=== PATIENT | female | born 1985 | race Caucasian/White ===

== ENCOUNTER 2019-02-18 09:56 | Observation (INO) | payer OTHER ==
--- NOTE | 2019-02-18 10:35 | ERPHSYRPT ---
- History of Present Illness Time Seen by Provider: 02/18/19 10:21 Historian: patient Exam Limitations: no limitations Patient Subjective Stated Complaint: pt reports she was seen last week at the [facility] for congestion of chest and head, report she was given a zpak and a steroid injection. states her s/s have increased and she now feels like she has heartburn, denies pain but states she has chest discomfort. pt reports she has also been sweating profusely and is tired with minimal exertion. pt also reports productive cough. Triage Nursing Assessment: pt is aox3, pupils perrl, afebrile, pt is extremely diaphoretic, pt skin appears flushed but clammy to touch, resps easy and non labored, lung sounds are diminished, radial pulses strong and equal, heart sounds strong and regular, cap refill < 3 seconds, no edema appreciated. pain localized to the epigastric region. Physician History: 33-year-old morbidly obese white female who states that she was seen last week secondary to chest congestion head congestion she was given a Z-Simba and steroids. She states that for the past 2 days she has been experiencing substernal pain described as a heartburn she states she's been having some shortness of breath some nausea, she states she vomited yesterday she has had a cough Past medical history patient states she had a patent ductus arteriosus repaired as an . Past surgical history cholecystectomy, , patent ductus arteriosus. Social history positive tobacco denies alcohol or illicit drug use Timing/Duration: day(s) (2 days) Activities at Onset: none Quality: burning Location: substernal Chest Pain Radiation: no radiation Severity of Pain-Max: moderate Severity of Pain-Current: mild Modifying Factors: Improves With: coughing. Worsens With: antacids, breathing, defecating, eating, exertion, lying down, morphine, movement, nitroglycerin, oxygen, palpation, aspirin, sitting up, change in position Associated Symptoms: nausea, vomiting (vomiting yesterday), heartburn, shortness of breath, cough, diaphoresis, chills, No palpitations, No abdominal pain, No hurts to breathe, No fever, No fatigue, No weakness, No swelling/lump in chest, No syncope, No rash, No headache, No dizziness, No edema, No back pain Prior Chest Pain/Cardiac Workup: no prior chest pain Aspirin Treatment Today: 81 mg x 4, provided by ED Allergies/Adverse Reactions: No Known Drug Allergies Allergy (Verified 02/18/19 10:19) Home Medications: Albuterol 8 gm Mdi Hfa [Ventolin Hfa MDI] 2 puff IH BID 02/18/19 [History] Hx Tetanus, Diphtheria Vaccination/Date Given: No Hx Influenza Vaccination/Date Given: No Hx Pneumococcal Vaccination/Date Given: No Immunizations Up to Date: Yes - Review of Systems Constitutional: No Fever, No Chills Eyes: No Symptoms Ears, Nose, & Throat: Nose Congestion, No Ear Pain, No Ear Discharge, No Hearing Changes, No Tinnitus, No Nose Pain, No Nose Discharge, No Sinus Drainage , No Epistaxis, No Mouth Pain, No Mouth Swelling, No Loose Teeth, No Throat Pain , No Throat Swelling, No Hoarse, No Painful Swallowing, No Snoring Respiratory: Cough, Dyspnea Cardiac: Chest Pain (pain like heartburn substernal) Abdominal/Gastrointestinal: Nausea, Vomiting, No Abdominal Pain, No Diarrhea, No Constipation, No Hematemesis, No Hematochezia, No Melena, No Dysphagia, No Appetite Changes Genitourinary Symptoms: No Dysuria Musculoskeletal: No Back Pain, No Neck Pain Skin: No Rash Neurological: No Dizziness, No Focal Weakness, No Sensory Changes Psychological: No Symptoms Endocrine: No Symptoms All Other Systems: Reviewed and Negative - Past Medical History Pertinent Past Medical History: No - Past Surgical History Past Surgical History: Yes Gastrointestinal: Cholecystectomy Female Surgical History: Section - Social History Smoking Status: Current every day smoker Exposure to second hand smoke: No Drug Use: none Patient Lives Alone: No - Female History Hx Last Menstrual Period: 01/19/19 Hx Now: No - Nursing Vital Signs Nursing Vital Signs: Initial Vital Signs Temperature 98.6 F 02/18/19 10:05 Pulse Rate 98 H 02/18/19 10:05 Respiratory Rate 20 02/18/19 10:05 Blood Pressure 130/78 02/18/19 10:05 O2 Sat by Pulse Oximetry 97 02/18/19 10:05 Pain Scale Pain Intensity 2 - Physical Exam General Appearance: mild distress, alert, obese, other (diaphoretic) Eye Exam: PERRL/EOMI, eyes nml inspection, other (fundi unremarkable) Ears, Nose, Throat Exam: normal ENT inspection, moist mucous membranes Neck Exam: normal inspection, non-tender, supple, full range of motion Respiratory Exam: normal breath sounds, lungs clear, No respiratory distress Cardiovascular Exam: regular rate/rhythm, normal heart sounds, capillary refill <2 sec Gastrointestinal/Abdomen Exam: soft, No tenderness, No mass Back Exam: normal inspection, No CVA tenderness, No vertebral tenderness Extremity Exam: normal inspection, normal range of motion Neurologic Exam: alert, oriented x 3, radio/tv technician II-XII nml as tested, sensation nml, No motor deficits, No sensory deficit Skin Exam: normal color, diaphoresis SpO2 Interpretation: normal (97%) SpO2: 97 - Course Nursing assessment & vital signs reviewed: Yes EKG Interpreted by Me: RATE (100 bpm), Sinus Rhythm, NORMAL AXIS, Other (EKG: Sinus rhythm, 100 beats per minute, normal axis, no acute ST or T wave changes, normal EKG) - Radiology Exams Chest X-ray Interpretation: Discussed w/ radiologist (chest x-ray:normal heart and lungs. Bony thorax intact with left rib fractures) - CT Exams Chest CT Interpretation: Discussed w/radiologist (CT chest: Impression 1. Troponin embolism evaluation limited due to suboptimal contrast opacification. No central pulmonary embolism. 2. Scattered fibrosis/scarring. No acute cardiopulmonary abnormalities. 3. Nonspecific small subcarinal and distal paraesophageal lymph nodes.) Abdomen CT Interpretation: Discussed w/radiologist (CT abdomen with contrast: Impression 1. Nonspecific small . Aortic and mesenteric lymph nodes larger 1.6x2.9 cm lymph node interposed bbetween the liver and the right hemidiaphragm 2. Fatty liver and splenomegaly 3. Remaining CT of the abdomen with contrast is negative, ) Ordered Tests: Active Orders 24 hr Category Date Time Status Bedrest with BRP/BSC ROUTINE Activity 02/18/19 14:55 Active Call Admit Doctor for Orders ON ADMISSION Care 02/18/19 14:55 Active Code Status Order ROUTINE Care 02/18/19 14:55 Active EKG-ER Only STAT Care 02/18/19 10:29 Completed IV Care Q6H Care 02/18/19 14:55 Active IV Insertion STAT Care 02/18/19 10:[address] in Observation ROUTINE Care 02/18/19 14:55 Active Telemetry q4h Care 02/18/19 14:55 Completed Telemetry q6h Care 02/18/19 14:55 Active Weight,Daily 0600 Care 02/18/19 14:55 Active Clear Liquid Diet 02/18/19 Dinner Active ABDOMEN WITH CONTRAST [CT] Stat Exams 02/18/19 11:24 Completed CHEST 1 VIEW (PORTABLE) Stat Exams 02/18/19 10:26 Completed CHEST WITH CONTRAST [CT] Stat Exams 02/18/19 11:18 Completed AMYLASE Stat Lab 02/18/19 10:00 Completed BLOOD CULTURE Stat Lab 02/18/19 10:48 Received CBC W DIFF AM.LAB Lab 02/19/19 04:00 Ordered CBC W DIFF Stat Lab 02/18/19 10:00 Completed CMP AM.LAB Lab 02/19/19 04:00 Ordered CMP Stat Lab 02/18/19 10:00 Completed CULTURE,URINE Stat Lab 02/18/19 11:00 Received D-DIMER QUANTITATION Stat Lab 02/18/19 10:00 Completed HCG QUALITATIVE,SERUM Stat Lab 02/18/19 10:30 Completed LIPASE Stat Lab 02/18/19 10:00 Completed Lactic Acid Stat Lab 02/18/19 11:05 Completed Lactic Acid Stat Lab 02/18/19 13:30 Completed Manual Differential NC Stat Lab 02/18/19 10:00 Completed NT PRO BNP Stat Lab 02/18/19 10:00 Completed TROPONIN Q3H Lab 02/18/19 10:30 Completed TROPONIN Q3H Lab 02/18/19 13:26 Completed UA W/RFX UR CULTURE Stat Lab 02/18/19 11:00 Completed Pulse Oximetry CONTINUOUS RT 02/18/19 14:55 Active Transfer Order Routine Transfer 02/18/19 Completed Medication Summary Generic Name Dose Route Start Last Admin Trade Name Freq PRN Reason Stop Dose Admin Ceftriaxone Sodium/Dextrose 1 g in 50 mls @ 100 mls/hr 02/19/19 10:00 Rocephin 1 Gm-D5w 50 Ml Bag IV 03/21/19 09:59 Q24H10 VAMSHI Sodium Chloride 1,000 mls @ 100 mls/hr 02/18/19 14:55 02/18/19 15:48 Sodium Chloride 0.9% 1000 Ml IV 03/20/19 14:54 100 mls/hr .Q10H VAMSHI Administration Discontinued Medications Generic Name Dose Route Start Last Admin Trade Name Freq PRN Reason Stop Dose Admin Aspirin 324 mg 02/18/19 11:18 02/18/19 11:26 Baby Aspirin 81 Mg Chew PO 02/18/19 11:19 324 mg STAT ONE Administration Aspirin Confirm 02/18/19 11:22 Baby Aspirin 81 Mg Chew Administered 02/18/19 11:23 Dose 81 mg .ROUTE .STK-MED ONE Sodium Chloride 1,000 mls @ 999 mls/hr 02/18/19 11:15 02/18/19 12:41 Sodium Chloride 0.9% 1000 Ml IV 02/18/19 12:15 Infused .Q1H1M STA Infusion Sodium Chloride 1,000 mls @ 999 mls/hr 02/18/19 11:15 02/18/19 14:07 Sodium Chloride 0.9% 1000 Ml IV 02/18/19 12:15 Infused .Q1H1M STA Infusion Ceftriaxone Sodium/Dextrose 1 g in 50 mls @ 100 mls/hr 02/18/19 11:19 12:40 Rocephin 1 Gm-D5w 50 Ml Bag IV 02/18/19 11:48 Infused STAT STA Infusion Sodium Chloride Confirm 02/18/19 11:22 Sodium Chloride 0.9% 1000 Ml Administered 02/18/19 11:23 Dose 1,000 mls @ ud .ROUTE .STK-MED ONE Sodium Chloride 1,000 mls @ 999 mls/hr 02/18/19 11:25 02/18/19 14:07 Sodium Chloride 0.9% 1000 Ml IV 02/18/19 12:25 999 mls/hr .Q1H1M STA Administration Ceftriaxone Sodium/Dextrose Confirm 02/18/19 11:33 Rocephin 1 Gm-D5w 50 Ml Bag Administered 02/18/19 11:34 Dose 1 g in 50 mls @ ud IV .STK-MED ONE Sodium Chloride Confirm 02/18/19 12:28 Sodium Chloride 0.9% 1000 Ml Administered 02/18/19 12:29 Dose 1,000 mls @ ud .ROUTE .STK-MED ONE Sodium Chloride Confirm 02/18/19 14:04 Sodium Chloride 0.9% 1000 Ml Administered 02/18/19 14:05 Dose 1,000 mls @ ud .ROUTE .STK-MED ONE Lab/Rad Data: Laboratory Result Diagrams 02/18/19 10:00 02/18/19 10:00 Laboratory Results 02/18/19 02/18/19 02/18/19 Range/Units 13:30 13:26 11:05 WBC (4.0-10.5) K/mm3 RBC (4.1-5.4) M/mm3 Hgb (12.0-16.0) gm/dl Hct (35-47) % MCV (78-100) fl MCH (26-32) pg MCHC (32-36) g/dl RDW (11.5-14.0) % Plt Count (150-450) K/mm3 MPV (6-9.5) fl Segmented Neutrophils (36.0-66.0) % Band Neutrophils (0.0-2.0) % Lymphocytes (Manual) (24-44) % Monocytes (Manual) (0.0-12.0) % Atypical Lymphocytes % Toxic Granulation Platelet Estimate (NORMAL) RBC Morphology Anisocytosis D-Dimer (215-500) ng/mL Sodium (137-145) mmol/L Potassium (3.5-5.1) mmol/L Chloride (98-107) mmol/L Carbon Dioxide (22-30) mmol/L Anion Gap (5-15) MEQ/L BUN (7-17) mg/dL Creatinine (0.52-1.04) mg/dL Estimated GFR ML/MIN Glucose (74-106) mg/dL Lactic Acid 1.2 2.3 H (0.4-2.0) Calcium (8.4-10.2) mg/dL Total Bilirubin (0.2-1.3) mg/dL AST (14-36) U/L ALT (0-35) U/L Alkaline Phosphatase (38-126) U/L Troponin I < 0.012 (0.000-0.034) ng/mL NT-Pro-B Natriuret Pep (0-450) pg/mL Serum Total Protein (6.3-8.2) g/dL Albumin (3.5-5.0) g/dL Amylase (30-110) U/L Lipase (23-300) U/L Serum , Qual (Negative) Urine Color (YELLOW) Urine Appearance (CLEAR) Urine pH (5-6) Ur Specific [place] (1.005-1.025) Urine Protein (Negative) Urine Ketones (NEGATIVE) Urine Blood (0-5) Jamil/ul Urine Nitrite (NEGATIVE) Urine Bilirubin (NEGATIVE) Urine Urobilinogen (0-1) mg/dL Ur Leukocyte Esterase (NEGATIVE) Urine WBC (Auto) (0-5) /HPF Urine RBC (Auto) (0-2) /HPF U Epithel Cells (Auto) (FEW) /HPF Urine Bacteria (Auto) (NEGATIVE) /HPF Urine Mucus (Auto) (NEGATIVE) /HPF Urine Culture Reflexed (NO) Urine Glucose (NEGATIVE) mg/dL Influenza Type A Ag (NEGATIVE) Influenza Type B Ag (NEGATIVE) RSV (PCR) (Negative) Group A Strep Antibody (NEGATIVE) 02/18/19 02/18/19 02/18/19 Range/Units 11:00 10:55 10:30 WBC (4.0-10.5) K/mm3 RBC (4.1-5.4) M/mm3 Hgb (12.0-16.0) gm/dl Hct (35-47) % MCV (78-100) fl MCH (26-32) pg MCHC (32-36) g/dl RDW (11.5-14.0) % Plt Count (150-450) K/mm3 MPV (6-9.5) fl Segmented Neutrophils (36.0-66.0) % Band Neutrophils (0.0-2.0) % Lymphocytes (Manual) (24-44) % Monocytes (Manual) (0.0-12.0) % Atypical Lymphocytes % Toxic Granulation Platelet Estimate (NORMAL) RBC Morphology Anisocytosis D-Dimer (215-500) ng/mL Sodium (137-145) mmol/L Potassium (3.5-5.1) mmol/L Chloride (98-107) mmol/L Carbon Dioxide (22-30) mmol/L Anion Gap (5-15) MEQ/L BUN (7-17) mg/dL Creatinine (0.52-1.04) mg/dL Estimated GFR ML/MIN Glucose (74-106) mg/dL Lactic Acid (0.4-2.0) Calcium (8.4-10.2) mg/dL Total Bilirubin (0.2-1.3) mg/dL AST (14-36) U/L ALT (0-35) U/L Alkaline Phosphatase (38-126) U/L Troponin I (0.000-0.034) ng/mL NT-Pro-B Natriuret Pep (0-450) pg/mL Serum Total Protein (6.3-8.2) g/dL Albumin (3.5-5.0) g/dL Amylase (30-110) U/L Lipase (23-300) U/L Serum , Qual NEGATIVE (Negative) Urine Color KRIS (YELLOW) Urine Appearance CLOUDY (CLEAR) Urine pH 5.0 (5-6) Ur Specific [place] 1.018 (1.005-1.025) Urine Protein 30 (Negative) Urine Ketones NEGATIVE (NEGATIVE) Urine Blood SMALL (0-5) Jamil/ul Urine Nitrite NEGATIVE (NEGATIVE) Urine Bilirubin SMALL (NEGATIVE) Urine Urobilinogen 4 (0-1) mg/dL Ur Leukocyte Esterase NEGATIVE (NEGATIVE) Urine WBC (Auto) 26-50 (0-5) /HPF Urine RBC (Auto) 3-5 (0-2) /HPF U Epithel Cells (Auto) FEW (FEW) /HPF Urine Bacteria (Auto) PACKED (NEGATIVE) /HPF Urine Mucus (Auto) SLIGHT (NEGATIVE) /HPF Urine Culture Reflexed YES (NO) Urine Glucose 50 (NEGATIVE) mg/dL Influenza Type A Ag NEGATIVE (NEGATIVE) Influenza Type B Ag NEGATIVE (NEGATIVE) RSV (PCR) NEGATIVE (Negative) Group A Strep Antibody NEGATIVE (NEGATIVE) 02/18/19 02/18/19 02/18/19 Range/Units 10:30 10:00 10:00 WBC (4.0-10.5) K/mm3 RBC (4.1-5.4) M/mm3 Hgb (12.0-16.0) gm/dl Hct (35-47) % MCV (78-100) fl MCH (26-32) pg MCHC (32-36) g/dl RDW (11.5-14.0) % Plt Count (150-450) K/mm3 MPV (6-9.5) fl Segmented Neutrophils (36.0-66.0) % Band Neutrophils (0.0-2.0) % Lymphocytes (Manual) (24-44) % Monocytes (Manual) (0.0-12.0) % Atypical Lymphocytes % Toxic Granulation Platelet Estimate (NORMAL) RBC Morphology Anisocytosis D-Dimer 1432 H* (215-500) ng/mL Sodium (137-145) mmol/L Potassium (3.5-5.1) mmol/L Chloride (98-107) mmol/L Carbon Dioxide (22-30) mmol/L Anion Gap (5-15) MEQ/L BUN (7-17) mg/dL Creatinine (0.52-1.04) mg/dL Estimated GFR ML/MIN Glucose (74-106) mg/dL Lactic Acid (0.4-2.0) Calcium (8.4-10.2) mg/dL Total Bilirubin (0.2-1.3) mg/dL AST (14-36) U/L ALT (0-35) U/L Alkaline Phosphatase (38-126) U/L Troponin I < 0.012 (0.000-0.034) ng/mL NT-Pro-B Natriuret Pep (0-450) pg/mL Serum Total Protein (6.3-8.2) g/dL Albumin (3.5-5.0) g/dL Amylase 77 (30-110) U/L Lipase 94 (23-300) U/L Serum , Qual (Negative) Urine Color (YELLOW) Urine Appearance (CLEAR) Urine pH (5-6) Ur Specific [place] (1.005-1.025) Urine Protein (Negative) Urine Ketones (NEGATIVE) Urine Blood (0-5) Jamil/ul Urine Nitrite (NEGATIVE) Urine Bilirubin (NEGATIVE) Urine Urobilinogen (0-1) mg/dL Ur Leukocyte Esterase (NEGATIVE) Urine WBC (Auto) (0-5) /HPF Urine RBC (Auto) (0-2) /HPF U Epithel Cells (Auto) (FEW) /HPF Urine Bacteria (Auto) (NEGATIVE) /HPF Urine Mucus (Auto) (NEGATIVE) /HPF Urine Culture Reflexed (NO) Urine Glucose (NEGATIVE) mg/dL Influenza Type A Ag (NEGATIVE) Influenza Type B Ag (NEGATIVE) RSV (PCR) (Negative) Group A Strep Antibody (NEGATIVE) 02/18/19 02/18/19 Range/Units 10:00 10:00 WBC 6.7 (4.0-10.5) K/mm3 RBC 5.34 (4.1-5.4) M/mm3 Hgb 15.9 (12.0-16.0) gm/dl Hct 46.8 (35-47) % MCV 87.6 (78-100) fl MCH 29.8 (26-32) pg MCHC 34.0 (32-36) g/dl RDW 14.4 H (11.5-14.0) % Plt Count 61 L (150-450) K/mm3 MPV 10.9 H (6-9.5) fl Segmented Neutrophils 35 L (36.0-66.0) % Band Neutrophils 1 (0.0-2.0) % Lymphocytes (Manual) 48 H (24-44) % Monocytes (Manual) 10 (0.0-12.0) % Atypical Lymphocytes 6 % Toxic Granulation 1+ Platelet Estimate DECREASED (NORMAL) RBC Morphology ABNORMAL Anisocytosis 1+ D-Dimer (215-500) ng/mL Sodium 139 (137-145) mmol/L Potassium 3.7 (3.5-5.1) mmol/L Chloride 102 (98-107) mmol/L Carbon Dioxide 25 (22-30) mmol/L Anion Gap 16.1 H (5-15) MEQ/L BUN 7 (7-17) mg/dL Creatinine 0.76 (0.52-1.04) mg/dL Estimated GFR > 60.0 ML/MIN Glucose 190 H (74-106) mg/dL Lactic Acid (0.4-2.0) Calcium 8.9 (8.4-10.2) mg/dL Total Bilirubin 1.70 H (0.2-1.3) mg/dL AST 476 H (14-36) U/L ALT 987 H (0-35) U/L Alkaline Phosphatase 206 H (38-126) U/L Troponin I (0.000-0.034) ng/mL NT-Pro-B Natriuret Pep 21.7 (0-450) pg/mL Serum Total Protein 8.7 H (6.3-8.2) g/dL Albumin 4.0 (3.5-5.0) g/dL Amylase (30-110) U/L Lipase (23-300) U/L Serum , Qual (Negative) Urine Color (YELLOW) Urine Appearance (CLEAR) Urine pH (5-6) Ur Specific [place] (1.005-1.025) Urine Protein (Negative) Urine Ketones (NEGATIVE) Urine Blood (0-5) Jamil/ul Urine Nitrite (NEGATIVE) Urine Bilirubin (NEGATIVE) Urine Urobilinogen (0-1) mg/dL Ur Leukocyte Esterase (NEGATIVE) Urine WBC (Auto) (0-5) /HPF Urine RBC (Auto) (0-2) /HPF U Epithel Cells (Auto) (FEW) /HPF Urine Bacteria (Auto) (NEGATIVE) /HPF Urine Mucus (Auto) (NEGATIVE) /HPF Urine Culture Reflexed (NO) Urine Glucose (NEGATIVE) mg/dL Influenza Type A Ag (NEGATIVE) Influenza Type B Ag (NEGATIVE) RSV (PCR) (Negative) Group A Strep Antibody (NEGATIVE) - Progress Progress: improved Air Movement: fair Progress Note: 02/18/19 14:08 Patient's troponin is negative x2 Unfortunately the patient with elevated liver enzymes. Patient also with a urinary tract infection. Patient did have elevation of lactic acid of 2.3 she was given 3 L of normal saline this is coming down to 1.2 she was also given Rocephin 1 g IV she was given aspirin 324 mg orally Patient was EKG normal sinus rhythm 100 beats per minute normal axis no acute ST or T wave changes normal EKG strep influenza negative Patient with a CBC showing a white count 6.7 hemoglobin 15.9 hematocrit 46.8 platelets were [address] of the chest which was obtained secondary to elevated d-dimer impression 1 pulmonary embolus evaluation limited due to suboptimal contrast opacification no central pulmonary embolus 2. Scattered fibrosis/scarring no acute cardiopulmonary abnormalities 3. Nonspecific small subcarinal and distal paraesophageal lymph nodes Patient's with a CT of the abdomen with contrast impression 1 nonspecific small periureteric and mesenteric lymph nodes. The larger 1.6x2.9 cm lymph node in the posterior between the liver and right hemidiaphragm 2. Fatty liver splenomegaly 3. Remaining CT of the abdomen with contrast exam was negative patient's chest x-ray no acute disease processes noted Patient is improving and feels much better however she has elevated liver enzymes as well as her urinary tract infection I've discussed the patient's case with Dr. Velázquez will place patient on telemetry observation provide IV fluids provide Rocephin. Hepatitis panel has been ordered - Departure Departure Disposition: Observation Clinical Impression: Non-cardiac chest pain, Elevated liver enzymes Urinary tract infection Qualifiers: Urinary tract infection type: site unspecified Hematuria presence: without hematuria Qualified Code(s): N39.0 - Urinary tract infection, site not specified Condition: Fair Critical Care Time: No
[2019-02-18 10:41] LABS: Hematocrit 46.8 % (35-47); Hemoglobin 15.9 gm/dl (12.0-16.0); Mean Cell Volume 87.6 fl (78-100); Mean Corpuscular Hemoglobin 29.8 pg (26-32); Mean Platelet Volume 10.9 fl (6-9.5); Platelet Count 61 K/mm3 (150-450); Red Blood Count 5.34 M/mm3 (4.1-5.4); Red Cell Distribution Width 14.4 % (11.5-14.0); White Blood Count 6.7 K/mm3 (4.0-10.5)
[2019-02-18 10:42] LABS: AMYLASE 77 U/L (30-110); LIPASE 94 U/L (23-300)
[2019-02-18 10:48] LABS: SGPT/ALT 987 U/L (0-35)
[2019-02-18 10:51] LABS: ALKALINE PHOSPHATASE 206 U/L (38-126); ANION GAP 16.1 MEQ/L (5-15); BLOOD UREA NITROGEN 7 mg/dL (7-17); CHLORIDE 102 mmol/L (98-107); Calcium 8.9 mg/dL (8.4-10.2); Carbon Dioxide 25 mmol/L (22-30); Creatinine 1 0.76 mg/dL (0.52-1.04); Glucose 190 mg/dL (74-106); NT PRO BNP 21.7 pg/mL (0-450); Potassium 3.7 mmol/L (3.5-5.1); SGOT/AST 476 U/L (14-36); SODIUM 139 mmol/L (137-145); Total Protein 8.7 g/dL (6.3-8.2)
--- NOTE | 2019-02-18 10:52 | XRAY ---
Indication: Chest pain, short of breath, and sweating. Comparison: None Portable chest demonstrates normal heart and lungs. Bony thorax intact with old left rib fractures.
[2019-02-18 11:08] LABS: Lactic Acid 2.3 (0.4-2.0)
[2019-02-18] MEDS ORDERED: Sodium Chloride 0.9% 1000 ML 1,000 ML IV STA ×3 (11:15→11:25)
[2019-02-18] MEDS ORDERED: BABY ASPIRIN 81 MG CHEW PO ONE (11:18)
[2019-02-18] MEDS ORDERED: ROCEPHIN 1 Gm-D5w 50 ml Bag** 1 G/50 ML IVPB IV STA (11:19)
[2019-02-18] MEDS ORDERED: Sodium Chloride 0.9% 1000 ML 1,000 ML ONE ×3 (11:22→14:04)
[2019-02-18] MEDS ORDERED: BABY ASPIRIN 81 MG CHEW ONE (11:22)
[2019-02-18 11:28] LABS: Appearance CLOUDY (CLEAR); Bacteria PACKED /HPF (NEGATIVE); Bilirubin SMALL (NEGATIVE); Blood SMALL Ery/ul (0-5); Epithelial Cells FEW /HPF (FEW); Glucose 50 mg/dL (NEGATIVE); Ketones NEGATIVE (NEGATIVE); Leukocyte Esterase NEGATIVE (NEGATIVE); Mucus SLIGHT /HPF (NEGATIVE); Nitrite NEGATIVE (NEGATIVE); Protein,Urine Dip 30 (Negative); Specific Gravity 1.018 (1.005-1.025); Urobilinogen 4 mg/dL (0-1); WBC 26-50 /HPF (0-5)
[2019-02-18] MEDS ORDERED: ROCEPHIN 1 Gm-D5w 50 ml Bag** 1 G/50 ML IVPB IV ONE (11:33)
[2019-02-18 11:35] LABS: Group A Strep NEGATIVE (NEGATIVE); INFLUENZA A NEGATIVE (NEGATIVE); INFLUENZA B NEGATIVE (NEGATIVE); RESPIRATORY SYNCTIAL VIRUS NEGATIVE (Negative)
[2019-02-18 11:51] LABS: ANISOCYTOSIS 1+; ATYPICAL LYMPHS 6 %; BAND 1 % (0.0-2.0); Lymphocytes 48 % (24-44); Monocyte 10 % (0.0-12.0); Neutrophils 35 % (36.0-66.0); Platelet Estimate DECREASED (NORMAL); Total Cells Counted 100; Toxic Granulation 1+
--- NOTE | 2019-02-18 12:52 | XRAY ---
Indication: Chest pain. Short of breath. Elevated d-dimer. Multiple contiguous axial images obtained through the chest using 100 cc Isovue 370 contrast and PE protocol. Comparison: None There is suboptimal opacification of the pulmonary arteries limiting evaluation of the more distal lobar and segmental branches. No central pulmonary embolus. Heart is not enlarged. Aorta is normal in course and caliber. There are 2 distal paraesophageal lymph nodes, larger measuring 1.4 x 1.4 cm. 1.1 x 2.1 cm prominent subcarinal node. No pathologic hilar/axillary lymphadenopathy. Examination of the lung parenchyma demonstrates minimal peripheral fibrosis/scarring. No suspicious pulmonary mass, infiltrate, or effusion. Bony thorax intact. CT abdomen reported separately. Impression: 1. Pulmonary embolus evaluation limited due to suboptimal contrast opacification. No central pulmonary embolus. 2. Scattered fibrosis/scarring. No acute cardiopulmonary abnormalities. 3. Nonspecific small subcarinal and distal paraesophageal lymph nodes. CT DI 28.13
--- NOTE | 2019-02-18 12:56 | XRAY ---
Indication: Upper abdomen/chest pain. Elevated liver enzymes. Multiple contiguous axial images obtained through the abdomen only using 100 cc Isovue 370 contrast. Comparison: None CT chest reported separately. Noncontrasted stomach and visualized bowel loops appear nonobstructed. No free fluid/air. 14.9 cm splenomegaly. 1.6 x 2.9 cm noncalcified soft tissue mass interposed between the liver and hemidiaphragm anteriorly probably adenopathy. Small sub-centimeter periaortic and mesenteric nodes. No free fluid/air. Mild diffuse fatty liver. Previous cholecystectomy. Remaining liver, pancreas, spleen, adrenal glands, kidneys, proximal ureters, and aorta appear unremarkable. Osseous structures intact. No ventral hernias. Impression: 1. Nonspecific small periaortic and mesenteric lymph nodes. Larger 1.6 x 2.9 cm lymph node interposed between the liver and right hemidiaphragm. 2. Fatty liver and splenomegaly.. 3. Remaining CT abdomen with contrast exam is negative. CT DI 22.61
[2019-02-18] MEDS: Sodium Chloride 0.9% 1000 ML 1,000 ML IV SCH (15:48)
[2019-02-18] MEDS ORDERED: PHARMACY DOSING REQUEST MC ONE (16:23)
[2019-02-18] MEDS ORDERED: PROVENTIL COMMON CANISTER IH PRN (17:23)
[2019-02-18] MEDS: ENOXAPARIN SODIUM SQ SCH (18:06)
[2019-02-18] MEDS ORDERED: PROVENTIL COMMON CANISTER IH SCH (19:00)
[2019-02-18] MEDS ORDERED: Ventolin Hfa MDI IH SCH (22:00)
[2019-02-19] MEDS: Sodium Chloride 0.9% 1000 ML 1,000 ML IV SCH (01:13)
[2019-02-19 05:49] LABS: Hematocrit 41.1 % (35-47); Mean Cell Volume 87.4 fl (78-100); Mean Corpuscular Hemoglobin 29.8 pg (26-32); Mean Corpuscular Hgb Concent. 34.1 g/dl (32-36); Mean Platelet Volume 10.3 fl (6-9.5); Platelet Count 52 K/mm3 (150-450); Red Cell Distribution Width 14.2 % (11.5-14.0); White Blood Count 4.9 K/mm3 (4.0-10.5)
[2019-02-19 06:04] LABS: ALBUMIN 3.4 g/dL (3.5-5.0); ALKALINE PHOSPHATASE 209 U/L (38-126); ANION GAP 14.7 MEQ/L (5-15); BLOOD UREA NITROGEN 4 mg/dL (7-17); CHLORIDE 104 mmol/L (98-107); Calcium 8.3 mg/dL (8.4-10.2); Carbon Dioxide 21 mmol/L (22-30); Creatinine 1 0.54 mg/dL (0.52-1.04); Glucose 97 mg/dL (74-106); Potassium 3.8 mmol/L (3.5-5.1); SGOT/AST 231 U/L (14-36); SGPT/ALT 659 U/L (0-35); SODIUM 136 mmol/L (137-145); Total Protein 7.5 g/dL (6.3-8.2)
[2019-02-19] MEDS: ENOXAPARIN SODIUM SQ SCH (06:26)
[2019-02-19 06:36] LABS: HEPATITIS B VIRUS CORE TOT AB Reactive (Non Reactive); HEPATITIS C VIRUS ANTIBODY Strong Reactive (Non Reactive); Hepatitis B Surface Antigen Non Reactive (Non Reactive)
[2019-02-19 07:01] VITALS: BP 125/71
[2019-02-19 07:26] VITALS: PULSE 79; O2SAT 93
[2019-02-19 07:33] LABS: ATYPICAL LYMPHS 1 %; BAND 2 % (0.0-2.0); Eosinophil 1 % (0.00-3.0); Lymphocytes 52 % (24-44); Metamyelocyte 1 %; Monocyte 11 % (0.0-12.0); Neutrophils 32 % (36.0-66.0); Platelet Estimate DECREASED (NORMAL); Targert Cells 1+; Total Cells Counted 100
[2019-02-19 07:34] LABS: Hypochromia 1+
[2019-02-19 07:35] LABS: Granulocyte Absolute (ANC) 1.68 (1.4-6.9)
--- NOTE | 2019-02-19 07:43 | PCM.DCORD ---
- Discharge Discharge Date: 02/19/19 Condition: Good Prescriptions: Continue Albuterol 8 gm Mdi Hfa [Ventolin Hfa MDI] 2 puff IH BID Follow up with: JUAN NAVARRETE [Primary Care Provider] - 1 Week
[2019-02-19] MEDS ORDERED: ROCEPHIN 1 Gm-D5w 50 ml Bag** 1 G/50 ML IVPB IV SCH (10:00)
--- NOTE | 2019-02-19 10:49 | SSS ---
DISCHARGE DIAGNOSES: 1) HEPATITIS A. 2) HEPATITIS C. 3) FATTY LIVER DISEASE. 4) CHEST PAIN. HISTORY: The patient is a 33 year-old white female who presented to the emergency room after complaints of chest pain. She reports she has had an infection over the last week in which she was treated with a shot of steroid and Z-Simba for upper respiratory tract infection symptoms. She reports however she actually gotten better but began having problems with chest discomfort and profuse sweating. She presented herself to the emergency room and was admitted to the hospital for further evaluation and management. PAST MEDICAL/SURGICAL HISTORY: Essentially unremarkable other than that of section and cholecystectomy. MEDICATIONS: She is on Albuterol at home as her only medication. ALLERGIES: NKDA. PHYSICAL EXAMINATION: Revealed an obese, white female who appears to be in no distress at the time of my evaluation. Her temperature in the emergency room was 98.6F, pulse 98, respiratory rate 20, blood pressure 130/78. O2 97% on room air. HEENT: Normocephalic, atraumatic. Pupils equal round reactive to light. Extraocular movements intact. Oropharynx is pink and moist. NECK: Supple without lymphadenopathy, thyromegaly or JVD. CHEST: Clear to auscultation with good air movement bilaterally. HEART: Regular rate and rhythm without murmurs, rubs or gallops. ABDOMEN: Soft, tender in the right upper quadrant. EXTREMITIES: Without cyanosis, clubbing or edema. NEUROLOGIC: The patient is alert and oriented x3. SKIN: Noted to be diaphoretic at times. LAB DATA AND TESTS: Laboratory studies in the emergency room showed the troponins to be less than 0.012. She had group A Strep, influenza A/B and respiratory syncytial virus were all negative. She had an elevated D-dimer at 1,432. She did have a CT scan of the chest which was negative for pulmonary embolism rather poor quality. HCG was negative. UA showed 26 to 50 white blood cell per high power field. Nitrite was negative. There was however packed with bacteria, culture has been obtained. The patient had denied any upper respiratory tract infection symptoms. She had a lactic acid of 1.2 and initial one of actually 2.3. Amylase and lipase were normal. Her metabolic panel showed a glucose of 190, BUN 70, creatinine 0.76. She did have significant elevation in her bilirubin of 1.70. Her AST 476, ALT 987, alkaline phosphatase 206. The patient's white blood cell count was 6,700, hemoglobin 15.9, PLT count was low at 61,000. HOSPITAL COURSE: The patient is admitted to the [facility], given IV fluids. Troponins have remained negative. We tested for hepatitis. She reports that she did have hepatitis B vaccination and her surface antigen was negative and she does have antibodies for hepatitis B however she was positive for hepatitis A and strongly positive for hepatitis C. The patient at this point after fluid hydration is feeling better. She is felt to be ready for discharge home. She is instructed that hepatitis A is transmitted by fecal oral route and hepatitis C by blood and body fluids. She will be set up an appointment to see Dr. Lubin for hepatitis C treatments and she has an appointment in the office in one week for follow up otherwise. She is asked to watch for evidence of scleral icterus, jaundice of the skin or increasing abdominal pain.
[2019-02-19] MEDS ORDERED: ENOXAPARIN SODIUM SQ SCH (18:00)
== END 2019-02-19 08:45 | disposition home or self-care (01) ==
LOC: ED 09:56 → MED SURG 14:37
PROVIDERS: ADMIT Family Medicine; ATTEND Family Medicine
DX: B15.9 Hepatitis A without hepatic coma (principal); B19.20 Unspecified viral hepatitis C without hepatic coma; K76.0 Fatty (change of) liver, not elsewhere classified; R07.9 Chest pain, unspecified
CPT/HCPCS: 36000; 36415; 71045; 71260; 74160; 80053; 80074; 81001; 81025; 82150; 83605; 83690; 83880; 84484; 85025; 85379; 87040; 87086; 87631; 87651; 93005; 93268; 94762; 96360; 96361; 96365; 99285; G0378; 99284; J0696; J1650; A9270-GY

== ENCOUNTER 2020-07-29 16:07 | Emergency (ER) | payer OTHER ==
[2020-07-29] MEDS ORDERED: BABY ASPIRIN 81 MG CHEW PO ONE (16:48)
[2020-07-29] MEDS ORDERED: Sodium Chloride 0.9% 1000 ML 1,000 ML IV STA (16:48)
[2020-07-29] MEDS ORDERED: Zofran 4 MG/2 ML VIAL IV ONE (16:49)
[2020-07-29] MEDS ORDERED: MOTRIN 600 MG PO ONE (16:49)
[2020-07-29] MEDS ORDERED: TYLENOL EXTRA STRENGTH 500 MG PO STA (16:49)
[2020-07-29 16:55] LABS: Absolute Neutrophil Ct (ANC) 4.67 (1.4-6.9); BASOPHIL % 0.3 % (0.0-0.4); Basophil (Absolute #) 0.02 (0-0.4); Eosinophil % 9.7 % (0.00-5.0); Eosinophil (Absolute #) 0.63 (0-0.5); Hematocrit 43.4 % (35-47); Hemoglobin 15.3 gm/dl (12.0-16.0); Lymphocyte (Absolute #) 0.82 (1.0-4.6); Lymphocytes % 12.6 % (24.0-44.0); Mean Cell Volume 84.6 fl (78-100); Mean Corpuscular Hemoglobin 29.8 pg (26-32); Mean Corpuscular Hgb Concent. 35.3 g/dl (32-36); Mean Platelet Volume 9.2 fl (7.5-11.0); Monocyte (Absolute #) 0.35 (0.0-1.3); Monocytes % 5.4 % (0.0-12.0); Platelet Count 116 K/mm3 (150-450); Red Blood Count 5.13 M/mm3 (4.1-5.4); Red Cell Distribution Width 13.5 % (11.5-14.0); White Blood Count 6.5 K/mm3 (4.0-10.5)
[2020-07-29] MEDS ORDERED: BABY ASPIRIN 81 MG CHEW ONE (17:03)
[2020-07-29] MEDS ORDERED: Sodium Chloride 0.9% 1000 ML 1,000 ML ONE (17:03)
[2020-07-29] MEDS ORDERED: Zofran 4 MG/2 ML VIAL ONE (17:03)
[2020-07-29] MEDS ORDERED: TYLENOL EXTRA STRENGTH 500 MG ONE (17:03)
[2020-07-29] MEDS ORDERED: MOTRIN 600 MG ONE (17:03)
[2020-07-29 17:09] LABS: ALBUMIN 4.3 g/dL (3.5-5.0); ALKALINE PHOSPHATASE 161 U/L (38-126); ANION GAP 12.3 MEQ/L (5-15); BLOOD UREA NITROGEN 6 mg/dL (7-17); CHLORIDE 101 mmol/L (98-107); Calcium 8.9 mg/dL (8.4-10.2); Carbon Dioxide 20 mmol/L (22-30); Creatinine 1 0.48 mg/dL (0.52-1.04); EST GLOMERULAR FILTRATION RATE > 60.0 ML/MIN; Glucose 207 mg/dL (74-106); LIPASE 103 U/L (23-300); NT PRO BNP 32.4 pg/mL (0-450); SGOT/AST 488 U/L (14-36); SGPT/ALT 537 U/L (0-35); SODIUM 129 mmol/L (137-145); Total Protein 8.7 g/dL (6.3-8.2)
--- NOTE | 2020-07-29 17:11 | ERPHSYRPT ---
- History of Present Illness Time Seen by Provider: 07/29/20 16:08 Source: patient Patient Subjective Stated Complaint: pt here for cough, fever, aches,nasuea for 3 days now. took tylenol today, Triage Nursing Assessment: pt walked in , resp labored with excertion,face mask in place, has dry cough, skin warm, forehead sweating, pink, moves all ext well, Physician History: Patient is here for cough, fever, chills, and SOB. Her symptoms have been going on for 2 days. She did not call her PCP. She has not been able to follow-up. She states that she is a smoker. Patient is 136 kg. She denies any falls or other trauma. Location: Generalized Quality: Malaise, cough, fever, chills Radiation: None Severity: Moderate Duration: 2 days Timing: Gradual Modifying factors/associated signs and symptoms: Home Tylenol last taken yesterday. No flu shot yet this year Allergies/Adverse Reactions: No Known Drug Allergies Allergy (Verified 07/29/20 16:34) Home Medications: Albuterol 8 gm Mdi Hfa [Ventolin Hfa MDI] 2 puff IH BID 02/18/19 [History] Hx Tetanus, Diphtheria Vaccination/Date Given: No Hx Influenza Vaccination/Date Given: No Hx Pneumococcal Vaccination/Date Given: No Immunizations Up to Date: Yes Travel Risk - International Travel Have you traveled outside of the country in past 3 weeks: No - Coronavirus Screening Are you exhibiting any of the following symptoms?: Yes Symptoms: Fever, Cough: New Onset, Shortness of Breath, Vomiting/Diarrhea, Headaches/Body Aches/Fatigue Close contact with a COVID-19 positive Pt in past 14-21 Days: No - Review of Systems Constitutional: Fever, Chills, Fatigue Eyes: No Symptoms Ears, Nose, & Throat: No Symptoms Respiratory: Cough, Dyspnea Cardiac: No Chest Pain, No Edema, No Syncope Abdominal/Gastrointestinal: No Abdominal Pain, No Nausea, No Vomiting, No Diarrhea Genitourinary Symptoms: No Dysuria Musculoskeletal: No Back Pain, No Neck Pain Skin: No Rash Neurological: No Dizziness, No Focal Weakness, No Sensory Changes Psychological: No Symptoms Endocrine: No Symptoms All Other Systems: Reviewed and Negative - Past Medical History Pertinent Past Medical History: Yes Neurological History: No Pertinent History ENT History: No Pertinent History Cardiac History: No Pertinent History Respiratory History: COPD Endocrine Medical History: No Pertinent History Musculoskeletal History: No Pertinent History GI Medical History: Hepatitis History: No Pertinent History Psycho-Social History: Depression Female Reproductive Disorders: No Pertinent History - Past Surgical History Past Surgical History: Yes Neuro Surgical History: No Pertinent History Cardiac: Other Respiratory: No Pertinent History Gastrointestinal: Cholecystectomy Genitourinary: Kidney Surgery Musculoskeletal: No Pertinent History Female Surgical History: Section Other Surgical History: 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 - Social History Smoking Status: Current every day smoker How long have you smoked: 20 Exposure to second hand smoke: No Drug Use: none Patient Lives Alone: No - Female History Hx Last Menstrual Period: jun 26 Hx Now: No - Nursing Vital Signs Nursing Vital Signs: Initial Vital Signs Temperature 98.8 F 07/29/20 16:23 Pulse Rate 103 H 07/29/20 16:23 Respiratory Rate 24 07/29/20 16:23 Blood Pressure 144/91 07/29/20 16:23 O2 Sat by Pulse Oximetry 97 07/29/20 16:23 Pain Scale Pain Intensity 3 - Physical Exam General Appearance: no apparent distress, alert Eye Exam: PERRL/EOMI, eyes nml inspection Ears, Nose, Throat Exam: normal ENT inspection, TMs normal, pharynx normal, moist mucous membranes Neck Exam: normal inspection, non-tender, supple, full range of motion Respiratory Exam: normal breath sounds, lungs clear, other (Lungs diminished), No respiratory distress Cardiovascular Exam: normal heart sounds, normal peripheral pulses, tachycardia Gastrointestinal/Abdomen Exam: soft, normal bowel sounds, No tenderness, No mass Back Exam: normal inspection, normal range of motion, No CVA tenderness, No vertebral tenderness Extremity Exam: normal inspection, normal range of motion, pelvis stable Neurologic Exam: alert, oriented x 3, cooperative, normal mood/affect, nml cerebellar function, nml station & gait, sensation nml, No motor deficits Skin Exam: normal color, warm, dry, No rash Lymphatic Exam: No adenopathy SpO2: 97 - Course Nursing assessment & vital signs reviewed: Yes EKG Interpreted by Me: Sinus Tach Ordered Tests: Active Orders 24 hr Category Date Time Status Records Section Supervisor STAT Care 07/29/20 16:48 Active EKG-ER Only STAT Care 07/29/20 16:48 Active IV Insertion STAT Care 07/29/20 16:48 Active ABDOMEN AND PELVIS W CONTRAST [CT] Stat Exams 07/29/20 16:49 Taken CHEST WITH CONTRAST [CT] Stat Exams 07/29/20 16:48 Taken BLOOD CULTURE Stat Lab 07/29/20 17:13 Ordered CBC W DIFF Stat Lab 07/29/20 16:51 Completed CMP Stat Lab 07/29/20 16:51 Completed CULTURE,URINE Stat Lab 07/29/20 16:54 Ordered D-DIMER QUANTITATIVE Stat Lab 07/29/20 16:51 Completed HCG,QUALITATIVE URINE Stat Lab 07/29/20 16:54 Completed LIPASE Stat Lab 07/29/20 16:51 Completed Lactic Acid Stat Lab 07/29/20 16:48 Ordered NT PRO BNP Stat Lab 07/29/20 16:51 Completed TROPONIN Q3H Lab 07/29/20 16:51 Completed TROPONIN Q3H Lab 07/29/20 20:00 Ordered TROPONIN Q3H Lab 07/29/20 23:00 Ordered TROPONIN Q3H Lab 07/30/20 01:00 Ordered TROPONIN Q3H Lab 07/30/20 04:00 Ordered UA W/RFX UR CULTURE Stat Lab 07/29/20 16:54 Completed Medication Summary Generic Name Dose Route Start Last Admin Trade Name Freq PRN Reason Stop Dose Admin Vancomycin HCl 2 gm in 400 mls @ 133.333 mls/hr 07/29/20 17:40 Vancomycin 2 Gram/400 Ml Bag IV 07/29/20 20:39 STAT ONE Discontinued Medications Generic Name Dose Route Start Last Admin Trade Name Freq PRN Reason Stop Dose Admin Acetaminophen 1,000 mg 07/29/20 16:49 07/29/20 17:07 Tylenol Extra Strength 500 Mg PO 07/29/20 16:50 1,000 mg STAT STA Administration Acetaminophen Confirm 07/29/20 17:03 Tylenol Extra Strength 500 Mg Administered 07/29/20 17:04 Dose 1,000 mg .ROUTE .STK-MED ONE Aspirin 324 mg 07/29/20 16:48 07/29/20 17:08 Baby Aspirin 81 Mg Chew PO 07/29/20 16:49 324 mg STAT ONE Administration Aspirin Confirm 07/29/20 17:03 Baby Aspirin 81 Mg Chew Administered 07/29/20 17:04 Dose 324 mg .ROUTE .STK-MED ONE Sodium Chloride 1,000 mls @ 999 mls/hr 07/29/20 16:48 07/29/20 17:08 Sodium Chloride 0.9% 1000 Ml IV 07/29/20 17:48 999 mls/hr .Q1H1M STA Administration Sodium Chloride Confirm 07/29/20 17:03 Sodium Chloride 0.9% 1000 Ml Administered 07/29/20 17:04 Dose 1,000 mls @ ud .ROUTE .STK-MED ONE Piperacillin Sod/Tazobactam 100 mls @ 200 mls/hr 07/29/20 17:40 07/29/20 18:25 Sod 4.5 gm/ Sodium Chloride IV 07/29/20 18:09 200 mls/hr STAT ONE Administration Sodium Chloride Confirm 07/29/20 18:19 Sodium Chloride 100ml Mini-Bag Plus Administered 07/29/20 18:20 Dose 100 mls @ ud IV .STK-MED ONE Vancomycin HCl Confirm 07/29/20 18:19 Vancomycin 2 Gram/400 Ml Bag Administered 07/29/20 18:20 Dose 2 gm in 400 mls @ ud IV .STK-MED ONE Ibuprofen 600 mg 07/29/20 16:49 07/29/20 17:06 Motrin 600 Mg PO 07/29/20 16:50 600 mg STAT ONE Administration Ibuprofen Confirm 07/29/20 17:03 Motrin 600 Mg Administered 07/29/20 17:04 Dose 600 mg .ROUTE .STK-MED ONE Ondansetron HCl 8 mg 07/29/20 16:49 07/29/20 17:08 Zofran 4 Mg/2 Ml Vial IV 07/29/20 16:50 8 mg STAT ONE Administration Ondansetron HCl Confirm 07/29/20 17:03 Zofran 4 Mg/2 Ml Vial Administered 07/29/20 17:04 Dose 8 mg .ROUTE .STK-MED ONE Piperacillin Sod/Tazobactam Sod Confirm 07/29/20 18:18 Zosyn Inj Administered 07/29/20 18:19 Dose 4.5 gm IV .STK-MED ONE Lab/Rad Data: Laboratory Result Diagrams 07/29/20 16:51 07/29/20 16:51 Laboratory Results 07/29/20 07/29/20 07/29/20 Range/Units 17:18 17:13 16:54 WBC (4.0-10.5) K/mm3 RBC (4.1-5.4) M/mm3 Hgb (12.0-16.0) gm/dl Hct (35-47) % MCV (78-100) fl MCH (26-32) pg MCHC (32-36) g/dl RDW (11.5-14.0) % Plt Count (150-450) K/mm3 MPV (7.5-11.0) fl Gran % (36.0-66.0) % Eos # (Auto) (0-0.5) Absolute Lymphs (auto) (1.0-4.6) Absolute Monos (auto) (0.0-1.3) Lymphocytes % (24.0-44.0) % Monocytes % (0.0-12.0) % Eosinophils % (0.00-5.0) % Basophils % (0.0-0.4) % Absolute Granulocytes (1.4-6.9) Basophils # (0-0.4) D-Dimer (215-500) ng/mL Sodium (137-145) mmol/L Potassium (3.5-5.1) mmol/L Chloride (98-107) mmol/L Carbon Dioxide (22-30) mmol/L Anion Gap (5-15) MEQ/L BUN (7-17) mg/dL Creatinine (0.52-1.04) mg/dL Estimated GFR ML/MIN Glucose (74-106) mg/dL Calcium (8.4-10.2) mg/dL Total Bilirubin (0.2-1.3) mg/dL AST (14-36) U/L ALT (0-35) U/L Alkaline Phosphatase (38-126) U/L Troponin I (0.000-0.034) ng/mL NT-Pro-B Natriuret Pep (0-450) pg/mL Serum Total Protein (6.3-8.2) g/dL Albumin (3.5-5.0) g/dL Lipase (23-300) U/L Urine Color (YELLOW) Urine Appearance (CLEAR) Urine pH (5-6) Ur Specific [place] (1.005-1.025) Urine Protein (Negative) Urine Ketones (NEGATIVE) Urine Blood (0-5) Jamil/ul Urine Nitrite (NEGATIVE) Urine Bilirubin (NEGATIVE) Urine Urobilinogen (0-1) mg/dL Ur Leukocyte Esterase (NEGATIVE) Urine WBC (Auto) (0-5) /HPF Urine RBC (Auto) (0-2) /HPF U Epithel Cells (Auto) (FEW) /HPF Urine Bacteria (Auto) (NEGATIVE) /HPF Urine Mucus (Auto) (NEGATIVE) /HPF Urine Culture Reflexed (NO) Urine Glucose (NEGATIVE) mg/dL Urine HCG, Qual NEGATIVE (Negative) Influenza Type A Ag NEGATIVE (NEGATIVE) Influenza Type B Ag NEGATIVE (NEGATIVE) RSV (PCR) NEGATIVE (Negative) SARS-CoV-2 (PCR) NEGATIVE (NEGATIVE) 07/29/20 07/29/20 07/29/20 Range/Units 16:54 16:51 16:51 WBC (4.0-10.5) K/mm3 RBC (4.1-5.4) M/mm3 Hgb (12.0-16.0) gm/dl Hct (35-47) % MCV (78-100) fl MCH (26-32) pg MCHC (32-36) g/dl RDW (11.5-14.0) % Plt Count (150-450) K/mm3 MPV (7.5-11.0) fl Gran % (36.0-66.0) % Eos # (Auto) (0-0.5) Absolute Lymphs (auto) (1.0-4.6) Absolute Monos (auto) (0.0-1.3) Lymphocytes % (24.0-44.0) % Monocytes % (0.0-12.0) % Eosinophils % (0.00-5.0) % Basophils % (0.0-0.4) % Absolute Granulocytes (1.4-6.9) Basophils # (0-0.4) D-Dimer 1615 H* (215-500) ng/mL Sodium (137-145) mmol/L Potassium (3.5-5.1) mmol/L Chloride (98-107) mmol/L Carbon Dioxide (22-30) mmol/L Anion Gap (5-15) MEQ/L BUN (7-17) mg/dL Creatinine (0.52-1.04) mg/dL Estimated GFR ML/MIN Glucose (74-106) mg/dL Calcium (8.4-10.2) mg/dL Total Bilirubin (0.2-1.3) mg/dL AST (14-36) U/L ALT (0-35) U/L Alkaline Phosphatase (38-126) U/L Troponin I < 0.012 (0.000-0.034) ng/mL NT-Pro-B Natriuret Pep (0-450) pg/mL Serum Total Protein (6.3-8.2) g/dL Albumin (3.5-5.0) g/dL Lipase (23-300) U/L Urine Color KRIS (YELLOW) Urine Appearance SLIGHTLY CLOUDY (CLEAR) Urine pH 6.0 (5-6) Ur Specific [place] 1.024 (1.005-1.025) Urine Protein 30 (Negative) Urine Ketones TRACE (NEGATIVE) Urine Blood SMALL (0-5) Jamil/ul Urine Nitrite NEGATIVE (NEGATIVE) Urine Bilirubin NEGATIVE (NEGATIVE) Urine Urobilinogen 2 (0-1) mg/dL Ur Leukocyte Esterase NEGATIVE (NEGATIVE) Urine WBC (Auto) 3-5 (0-5) /HPF Urine RBC (Auto) 0-2 (0-2) /HPF U Epithel Cells (Auto) RARE (FEW) /HPF Urine Bacteria (Auto) MANY (NEGATIVE) /HPF Urine Mucus (Auto) SLIGHT (NEGATIVE) /HPF Urine Culture Reflexed ORDERED SEPARATELY (NO) Urine Glucose >=500 (NEGATIVE) mg/dL Urine HCG, Qual (Negative) Influenza Type A Ag (NEGATIVE) Influenza Type B Ag (NEGATIVE) RSV (PCR) (Negative) SARS-CoV-2 (PCR) (NEGATIVE) 07/29/20 07/29/20 Range/Units 16:51 16:51 WBC 6.5 (4.0-10.5) K/mm3 RBC 5.13 (4.1-5.4) M/mm3 Hgb 15.3 (12.0-16.0) gm/dl Hct 43.4 (35-47) % MCV 84.6 (78-100) fl MCH 29.8 (26-32) pg MCHC 35.3 (32-36) g/dl RDW 13.5 (11.5-14.0) % Plt Count 116 L (150-450) K/mm3 MPV 9.2 (7.5-11.0) fl Gran % 72.0 H (36.0-66.0) % Eos # (Auto) 0.63 H (0-0.5) Absolute Lymphs (auto) 0.82 L (1.0-4.6) Absolute Monos (auto) 0.35 (0.0-1.3) Lymphocytes % 12.6 L (24.0-44.0) % Monocytes % 5.4 (0.0-12.0) % Eosinophils % 9.7 H (0.00-5.0) % Basophils % 0.3 (0.0-0.4) % Absolute Granulocytes 4.67 (1.4-6.9) Basophils # 0.02 (0-0.4) D-Dimer (215-500) ng/mL Sodium 129 L (137-145) mmol/L Potassium 4.0 (3.5-5.1) mmol/L Chloride 101 (98-107) mmol/L Carbon Dioxide 20 L (22-30) mmol/L Anion Gap 12.3 (5-15) MEQ/L BUN 6 L (7-17) mg/dL Creatinine 0.48 L (0.52-1.04) mg/dL Estimated GFR > 60.0 ML/MIN Glucose 207 H (74-106) mg/dL Calcium 8.9 (8.4-10.2) mg/dL Total Bilirubin 2.50 H (0.2-1.3) mg/dL AST 488 H (14-36) U/L ALT 537 H (0-35) U/L Alkaline Phosphatase 161 H (38-126) U/L Troponin I (0.000-0.034) ng/mL NT-Pro-B Natriuret Pep 32.4 (0-450) pg/mL Serum Total Protein 8.7 H (6.3-8.2) g/dL Albumin 4.3 (3.5-5.0) g/dL Lipase 103 (23-300) U/L Urine Color (YELLOW) Urine Appearance (CLEAR) Urine pH (5-6) Ur Specific [place] (1.005-1.025) Urine Protein (Negative) Urine Ketones (NEGATIVE) Urine Blood (0-5) Jamil/ul Urine Nitrite (NEGATIVE) Urine Bilirubin (NEGATIVE) Urine Urobilinogen (0-1) mg/dL Ur Leukocyte Esterase (NEGATIVE) Urine WBC (Auto) (0-5) /HPF Urine RBC (Auto) (0-2) /HPF U Epithel Cells (Auto) (FEW) /HPF Urine Bacteria (Auto) (NEGATIVE) /HPF Urine Mucus (Auto) (NEGATIVE) /HPF Urine Culture Reflexed (NO) Urine Glucose (NEGATIVE) mg/dL Urine HCG, Qual (Negative) Influenza Type A Ag (NEGATIVE) Influenza Type B Ag (NEGATIVE) RSV (PCR) (Negative) SARS-CoV-2 (PCR) (NEGATIVE) - Progress Progress: improved Progress Note: 07/29/20 17:05 Differential diagnosis includes COVID-19, STEMI, infection, pneumonia, pulmonary embolism, UTI, pyelonephritis, kidney stone, other septic cause. -Basic labs, fluids, UA, CTA chest abdomen pelvis, flu swab, Covid swab. 07/29/20 19:03 ED critical care statement As staff physician, I have provided critical care. Time: 45 mins Criteria for critical illness: infection Treatment and management provided include: Coordination of management with [facility] care team, consultants, and inpatient care team. [id number] assessment of condition and response to therapy. Review and interpretation of emergent diagnostic testing. Medical chart review and completion. Direction and immediate supervision of the following therapy: Critical care was time spent personally by me on the following activities: blood draw for specimens, development of treatment plan with patient or surrogate, discussions with consultants, discussions with primary provider, interpretation of cardiac output measurements, evaluation of patient's response to treatment, examination of patient, obtaining history from patient or surrogate, ordering and performing treatments and interventions, ordering and review of laboratory studies, ordering and review of radiographic studies, pulse oximetry, re-evaluation of patient's condition and review of old charts. This time was independent of all procedures performed. [place] Patient may have bacteremia secondary to IV drug use patient may also have Covid. Rapid Covid negative here. Discussed over the phone with Dr. Velázquez. He recommended transfer the patient. I discussed over the phone to on-call physician at [facility]. They did accept the patient. This was Dr. Matos. IV antibiotics started on the patient. - Departure Departure Disposition: Transfer Clinical Impression: Fever, Shortness of breath, IV drug user Condition: Stable Critical Care Time: Yes Critical Care Time(excluding separately billable procedures): Critical 30-74 mins Referrals: JUAN NAVARRETE [Primary Care Provider] -
[2020-07-29 17:16] LABS: Appearance SLIGHTLY CLOUDY (CLEAR); Bacteria MANY /HPF (NEGATIVE); Bilirubin NEGATIVE (NEGATIVE); Blood SMALL Ery/ul (0-5); Epithelial Cells RARE /HPF (FEW); Glucose >=500 mg/dL (NEGATIVE); Ketones TRACE (NEGATIVE); Leukocyte Esterase NEGATIVE (NEGATIVE); Mucus SLIGHT /HPF (NEGATIVE); Nitrite NEGATIVE (NEGATIVE); Protein,Urine Dip 30 (Negative); RBC 0-2 /HPF (0-2); Specific Gravity 1.024 (1.005-1.025); Urobilinogen 2 mg/dL (0-1)
[2020-07-29] MEDS ORDERED: Zosyn INJ 4.5 GM in Sodium Chloride 100ML MINI-BAG PLUS 100 ML IV ONE (17:40)
[2020-07-29] MEDS ORDERED: VANCOMYCIN 2 GRAM/400 ML BAG 2 GM/400 ML PIGGYBACK IV ONE ×2 (17:40→18:19)
[2020-07-29 17:51] LABS: INFLUENZA A NEGATIVE (NEGATIVE); INFLUENZA B NEGATIVE (NEGATIVE); RESPIRATORY SYNCTIAL VIRUS NEGATIVE (Negative)
[2020-07-29] MEDS ORDERED: Zosyn INJ IV ONE (18:18)
[2020-07-29] MEDS ORDERED: Sodium Chloride 100ML MINI-BAG PLUS 100 ML IV ONE (18:19)
[2020-07-29 18:38] VITALS: PULSE 96
[2020-07-29 19:05] VITALS: O2SAT 97
[2020-07-29 19:14] VITALS: BP 130/81
--- NOTE | 2020-07-29 19:46 | XRAY ---
Indication: Elevated d-dimer. Suspect Covid 19. Multiple contiguous axial images obtained through the chest using 100 cc Isovue-370 contrast and PE protocol. Comparison: February 18, 2019. There is again poor opacification of the pulmonary arteries limiting evaluation for pulmonary embolus. No obvious central pulmonary embolus. Heart is not enlarged. Aorta is normal in course and caliber. No pathologic mediastinal/hilar lymphadenopathy. Lungs inflated again with minimal peripheral fibrosis/scarring and 6 mm peripheral left lower lobe noncalcified nodularity. No suspicious pulmonary mass, infiltrate, or effusion. Bony thorax intact. Limited upper abdomen again demonstrates fatty liver with stable 1.6 x 2.9 cm lymph node interposed between liver and right hemidiaphragm. Impression: 1. Pulmonary embolus evaluation limited due to poor contrast opacification. No obvious central pulmonary embolus. 2. No new or acute cardiopulmonary abnormalities. 3. Stable benign-appearing peripheral left lower lobe noncalcified micronodule, fatty liver, and lymph node interposed between the liver and right hemidiaphragm. Comment: Preliminary interpretation was made by [facility]. No critical discrepancy.
--- NOTE | 2020-07-29 19:58 | XRAY ---
Indication: Fever. Suspect Covid 19. Multiple contiguous axial images obtained through the abdomen and pelvis using 80 cc Isovue 370 contrast. Comparison: February 18, 2019 CT chest reported separately. Noncontrasted stomach and bowel loops appear nonobstructed. Normal appendix. Again diffuse fatty liver, 1.6 x 2.9 cm node interposed between the liver and right hemidiaphragm, and cholecystectomy clips. No free fluid/air. Remaining liver, pancreas, spleen, adrenal glands, kidneys, ureters, bladder, uterus, and aorta appear unremarkable. Stable subcentimeter periaortic nodes. No pathologic retroperitoneal lymphadenopathy. Osseous structures intact. Impression: 1. Stable fatty liver and lymph node interposed between the liver and right hemidiaphragm. 2. Remaining CT abdomen/pelvis with contrast exam is negative. Comment: Preliminary interpretation was made by [facility]. No critical discrepancy.
== END 2020-07-29 19:56 | disposition short-term general hospital (02) ==
LOC: ED 16:07
DX: R50.9 Fever, unspecified (principal); R06.02 Shortness of breath; T80.89XA Other complications following infusion, transfusion and therapeutic injection, initial encounter; Z72.0 Tobacco use; F19.90 Other psychoactive substance use, unspecified, uncomplicated
CPT/HCPCS: 71260; 74177; 80053; 81001; 83605; 83690; 83880; 84484; 84703; 85025; 85379; 87040; 87086; 87631; 93005; 93041; 96360; 96365; 96367; 96374; 99291; U0003; 36000; 36415; 99285; J2405; J2543; A9270-GY; J3370